=== PATIENT | female | born 1975 | race Two or more races ===

== ENCOUNTER 2023-07-20 06:25 | Day surgery (SDC) | payer OTHER ==
[2023-07-13 09:47] LABS: PH,URINE 5.5 (5.0-8.0); URINE APPEARANCE Clear; URINE BILIRRUBIN Negative (NEGATIVE); URINE BLOOD Small; URINE COLOR Yellow; URINE GLUCOSE Negative (NEGATIVE); URINE LEUKOCYTE Negative; URINE NITRATE Negative; URINE PROTEIN Trace (NEGATIVE)
[2023-07-13 09:53] LABS: URINE BACTERIA 219.1 uL (0.0-1933); URINE EPITHELIAL CELLS 9.5 uL (0.0-38.8); URINE RBC 30.6 uL (0.0-20.8); URINE WBC 8.3 uL (0.0-23.2)
[2023-07-13 09:56] LABS: HEMATOCRIT 38.8 % (36.0-45.00); HEMOGLOBIN 13.1 g/dL (12.0-15.00); MEAN CELL VOLUME 92.6 fL (80.00-100.00); MEAN CORPUSCULAR HEMOGLOBIN 31.4 pg (27.00-32.0); MEAN CORPUSCULAR HGB CONC 33.9 g/dl (32.0-36.0); RED BLOOD COUNT 4.19 M/uL (4.00-6.00); RED CELL DISTRIBUTION WIDTH 14.1 % (11.5-14.5)
[2023-07-13 10:33] LABS: ALBUMIN 3.5 gm/dL (3.4-5.0); BILIRUBIN TOTAL 0.7 mg/dL (0.3-1.2); CREATININE SERUM 0.7 mg/dL (0.55-1.02); GFR 90.49; GLOBULINA 3.8 G/DL (2.4-3.5); POTASSIUM 4.18 mEq/L (3.5-5.1); TOTAL PROTEIN 7.3 gm/dL (6.4-8.2)
[2023-07-13 10:35] LABS: PARTIAL THROMBOPLASTIN TIME 25.2 SECONDS (22.0-34.0); PROTHROMBIN TIME 10.5 SECONDS (9.0-11.5)
[2023-07-13 10:59] LABS: PLATELET COUNT 215 K/uL (150-450)
[~2023-07-20 06:25] MED LIST: CRESTOR20 MG PO
== END 2023-07-20 20:40 | disposition home or self-care (01) ==
LOC: CIR.AMB 06:25
PROVIDERS: ATTEND Surgery
DX: D05.11 Intraductal carcinoma in situ of right breast (principal); N60.22 Fibroadenosis of left breast; N60.92 Unspecified benign mammary dysplasia of left breast; N60.82 Other benign mammary dysplasias of left breast; D48.62 Neoplasm of uncertain behavior of left breast; R59.0 Localized enlarged lymph nodes; Z90.13 Acquired absence of bilateral breasts and nipples
CPT/HCPCS: 19303; 19340; 38525; A9541